=== PATIENT | female | born 1990 | race Caucasian/White ===

== ENCOUNTER 2016-12-25 20:58 | Emergency (ER) | payer OTHER ==
--- NOTE | 2016-12-25 21:11 | UC ---
UC General HPI - HPI Summary HPI Summary: The patient comes in today for: 1. Chills, myalgia, vomiting, dizzy (imblance to vertigo), fever: Onset: Yesterday evening. Palliative/provocative: Movement makes her dizziness worse. Quality: Vertigo and aches. Region: Back of the lefts and middle of back. Severity: 3/10 Associated symptoms: Fever: Taken 99.5 at one hour ago. Myalgia: Middle of the back, and posterior legs, Vomitin x /day. Mucous in vomitus, but no blood. Diarrhea: 10-12 stools/day brown water. Urination: "twice today." Home treatment: None. Flu vaccine: None. * - History of Current Complaint Stated Complaint: V&D,CRAMPS,FEVER,WEAK,DIZZY Time Seen by Provider: 12/25/16 21:04 Hx Obtained From: Patient, Family/Evaluation Assistant - Allergy/Home Medications Allergies/Adverse Reactions: Allergies Allergy/AdvReac Type Severity Reaction Status Date / Time Shellfish Allergy Allergy Mild Swelling Verified 12/25/16 21:15 Of Face,Lips,& Throat Gluten Meal Allergy Nausea And Verified 12/25/16 21:15 Vomiting Dextromethorphan AdvReac Nausea And Verified 12/25/16 21:15 [From Mucinex DM] Vomiting Guaifenesin [From Mucinex DM] AdvReac Nausea And Verified 12/25/16 21:15 Vomiting Yellow Dye [From Mucinex DM] AdvReac Nausea And Verified 12/25/16 21:15 Vomiting PMH/Surg Hx/FS Hx/Imm Hx Previously Healthy: No Endocrine History Of: Reports: Thyroid Disease - enlarged with nodule, sees Dr. Deluca Denies: Diabetes, Hyperthyroidism, Hypothyroidism, Dyslipidemia Cardiovascular History Of: Denies: Cardiac Disorders, Hypertension, Pacemaker/ICD, Myocardial Infarction , Congestive Heart Failure, Atrial Fibrillation, Deep Vein Thrombosis, Bleeding Disorders Respiratory History Of: Denies: COPD, Asthma, Bronchitis, Pneumonia, Pulmonary Embolism GI/ History Of: Denies: Gastroesophageal Reflux, Ulcer, Gastrointestinal Bleed, Gall Bladder Disease, Kidney Stones, Diverticulitis, Renal Disease, Urosepsis Neurological History Of: Denies: TIA, CVA, Dementia, Seizures, Migraine Psychological History Of: Denies: Anxiety, Depression, Bipolar Disorder, Schizophrenia, Post Traumatic Stress Disorder Cancer History Of: Denies: Lung Cancer, Colorectal Cancer, Breast Cancer, Prostate Cancer, Cervical Cancer Other History Of: Negative For: HIV, Hepatitis B, Hepatitis C, Anticoagulant Therapy - Surgical History Surgical History: Yes Surgery Procedure, Year, and Place: D&C March 2013. WISDOM TEETH 12/2013 - Family History Known Family History: Negative: Cardiac Disease, Hypertension - Social History Occupation: Employed Full-time Alcohol Use: Rare Substance Use Type: None Smoking Status (MU): Never Smoked Tobacco Have You Smoked in the Last Year: No - Immunization History Most Recent Influenza Vaccination: 07/25/15 Most Recent Tetanus Shot: 08/08/15 Most Recent Pneumonia Vaccination: never Review of Systems Constitutional: Negative Skin: Negative Eyes: Negative ENT: Negative Respiratory: Negative Cardiovascular: Negative Gastrointestinal: Negative, Vomiting, Diarrhea Genitourinary: Negative Neurological: Headache All Other Systems Reviewed And Are Negative: Yes Physical Exam Triage Information Reviewed: Yes Appearance: Well-Appearing, No Pain Distress, Well-Nourished Vital Signs Reviewed: Yes Eyes: Positive: Conjunctiva Clear. Negative: Discharge ENT: Positive: Hearing grossly normal. Negative: Pharyngeal erythema, Nasal congestion, Nasal drainage, TM bulging, TM dull, TM red, Tonsillar swelling, Tonsillar exudate Dental: Negative: Gross Decay/Caries @, Dental Fracture @ Neck: Positive: Supple, Nontender, No Lymphadenopathy. Negative: Nuchal Rigidity Respiratory: Positive: Chest non-tender, Lungs clear, No respiratory distress, No accessory muscle use. Negative: Crackles, Wheezing Cardiovascular: Positive: RRR, No Murmur Abdomen Description: Positive: Nontender, No Organomegaly, Soft. Negative: Distended, Guarding Musculoskeletal: Positive: Strength Intact, ROM Intact, No Edema Neurological: Positive: Alert, Muscle Tone Normal Psychological: Positive: Age Appropriate Behavior, Consolable Skin: Negative: rashes, breakdown Course/Dx - Course Course Of Treatment: Patient declined a rapid flu test. She got 1 liter of D5NS and 4 mg of Zofran. She is feeling much better in nausea (gone) with improvement in the body aches. She declines any vertigo at this time. - Differential Dx - Multi-Symptom Provider Diagnoses: Viral syndrome. Vertigo secondary to above. Viral gastroenteritis. myalgia secondary to above. Dehydration. Discharge - Discharge Plan Condition: Stable Disposition: HOME Prescriptions: Ondansetron INJ* [Zofran 2 MG/ML Inj*] 4 mg IV ONCE #4 mg Patient Education Materials: Dehydration (ED), Viral Syndrome (ED), Gastroenteritis (ED), Vertigo (ED) Forms: *Work Release Referrals: Christen Palomino, ANGELA [Primary Care Provider] - 1 Week (Please see your primary care provider early next week to see how well you are doing. If you get worse between now and then, please be seen sooner by your primary care provider, us, or the ER.)
[2016-12-25] MEDS ORDERED: Ondansetron INJ* 2 MG/ML VIAL IV ONE (21:13)
[2016-12-25] MEDS ORDERED: D5NS 0.9% 1000 ML BAG* 1,000 ML IV SCH (22:00)
[2016-12-25] MEDS ORDERED: Meclizine TAB* 12.5 MG PO ONE (22:30)
[2016-12-25] MEDS ORDERED: Ondansetron ODT TAB* 4 MG PO ONE (22:30)
[2016-12-25 22:48] VITALS: BP 114/69
== END 2016-12-25 22:55 | disposition home or self-care (01) ==
LOC: UCEAST 20:58
DX: B34.9 Viral infection, unspecified (principal); R42 Dizziness and giddiness; A08.4 Viral intestinal infection, unspecified; M79.1 Myalgia; E86.0 Dehydration; E04.9 Nontoxic goiter, unspecified
CPT/HCPCS: 96360; 96374; 99213; A9270-GY; G0463; J2405

== ENCOUNTER 2016-12-27 21:54 | Emergency (ER) | payer OTHER ==
--- NOTE | 2016-12-27 22:56 | UC ---
Abdominal Pain Female HPI - HPI Summary HPI Summary: PT WITH 3 DAYS OF ABDOMINAL PAIN AND WATERY DIARRHEA. WAS SEEN HERE 2 DAYS AGO AND TX WITH IVF, ZOFRAN AND MECLIZINE. FELT A BIT BETTER YESTERDAY BUT TODAY WORSE AGAIN. HAD LOW GRADE FEVER INITIALLY WHICH HAS NOW RESOLVED. ALSO HAS HAD SOME RIGHT FLANK PAIN THAT HAS BEEN PERSISTENT. NAUSEA IS INTERMITTENT BUT VOMITING HAS STOPPED. - History of Current Complaint Chief Complaint: UCAbdominalPain Stated Complaint: BACK AND ABDOMINAL COMPLAINT Time Seen by Provider: 12/27/16 22:34 Hx Obtained From: Patient, Family/Loading Machine Tool Setter - Hx Last Menstrual Period: Onset/Duration: Gradual Onset, Lasting Days, Still Present Timing: Constant Severity Initially: Moderate Severity Currently: Moderate Pain Intensity: 6 Pain Scale Used: 0-10 Numeric Location: Diffuse Radiates: No Character: Cramping, Sharp Aggravating Factor(s): Nothing Alleviating Factor(s): Nothing Associated Signs and Symptoms: Positive: Fever, Back Pain, Decreased Appetite, Nausea, Diarrhea Allergies/Adverse Reactions: Allergies Allergy/AdvReac Type Severity Reaction Status Date / Time Shellfish Allergy Allergy Mild Swelling Verified 12/27/16 22:04 Of Face,Lips,& Throat Gluten Meal Allergy Nausea And Verified 12/27/16 22:04 Vomiting Dextromethorphan AdvReac Nausea And Verified 12/27/16 22:04 [From Mucinex DM] Vomiting Guaifenesin [From Mucinex DM] AdvReac Nausea And Verified 12/27/16 22:04 Vomiting Yellow Dye [From Mucinex DM] AdvReac Nausea And Verified 12/27/16 22:04 Vomiting PMH/Surg Hx/FS Hx/Imm Hx - Additional Past Medical History Additional PMH: CELIAC Endocrine History Of: Reports: Thyroid Disease - enlarged with nodule, sees Dr. Deluca Denies: Diabetes, Hyperthyroidism, Hypothyroidism, Dyslipidemia Cardiovascular History Of: Denies: Cardiac Disorders, Hypertension, Pacemaker/ICD, Myocardial Infarction , Congestive Heart Failure, Atrial Fibrillation, Deep Vein Thrombosis, Bleeding Disorders Respiratory History Of: Denies: COPD, Asthma, Bronchitis, Pneumonia, Pulmonary Embolism GI/ History Of: Denies: Gastroesophageal Reflux, Ulcer, Gastrointestinal Bleed, Gall Bladder Disease, Kidney Stones, Diverticulitis, Renal Disease, Urosepsis Neurological History Of: Denies: TIA, CVA, Dementia, Seizures, Migraine Psychological History Of: Denies: Anxiety, Depression, Bipolar Disorder, Schizophrenia, Post Traumatic Stress Disorder Cancer History Of: Denies: Lung Cancer, Colorectal Cancer, Breast Cancer, Prostate Cancer, Cervical Cancer Other History Of: Negative For: HIV, Hepatitis B, Hepatitis C, Anticoagulant Therapy - Surgical History Surgical History: Yes Surgery Procedure, Year, and Place: D&C March 2013. WISDOM TEETH 12/2013 - Family History Known Family History: Negative: Cardiac Disease, Hypertension - Social History Alcohol Use: Occasionally Substance Use Type: None Smoking Status (MU): Never Smoked Tobacco Have You Smoked in the Last Year: No - Immunization History Most Recent Influenza Vaccination: 07/25/15 Most Recent Tetanus Shot: 08/08/15 Most Recent Pneumonia Vaccination: never Review of Systems Constitutional: Fever Respiratory: Negative Cardiovascular: Negative Gastrointestinal: Abdominal Pain, Diarrhea, Other - NAUSEA Genitourinary: Negative All Other Systems Reviewed And Are Negative: Yes Physical Exam Triage Information Reviewed: Yes Appearance: No Pain Distress, Well-Nourished, Ill-Appearing - MILDLY Vital Signs: Initial Vital Signs Temp 97.5 F 12/27/16 21:58 Pulse 98 12/27/16 21:58 Resp 16 12/27/16 21:58 BP 109/77 12/27/16 21:58 Pulse Ox 98 12/27/16 21:58 Eyes: Positive: Conjunctiva Clear ENT: Positive: Hearing grossly normal Neck: Positive: Supple, Nontender, No Lymphadenopathy Respiratory Exam: Normal Cardiovascular Exam: Normal Abdomen Description: Positive: Soft, Other: - RUQ TTP. NO REBOUND OR RIGIDITY. Negative: CVA Tenderness (R), CVA Tenderness (L), Distended Bowel Sounds: Positive: Present Musculoskeletal: Positive: No Edema Neurological: Positive: Alert Psychological: Positive: Age Appropriate Behavior Skin: Negative: rashes Abd Pain Female Course/Dx - Course Course Of Treatment: PT UNABLE TO PROVIDE A URINE SAMPLE FOR TESTING. WILL SEND TO ER FOR FURTHER EVAL OF PERSISTENT ABDOMINAL PAIN AND DIARRHEA. HAS DISTINCT RUQ TENDERNESS. - Differential Dx/Diagnosis Provider Diagnoses: RUQ PAIN/DIARRHEA - Physician Notification/Consults Discussed Patient Care With: DR. MATTHEWS Time Discussed With Above Provider: 22:55 - TO [facility] [place] ER BY PRIVATE CAR Discharge - Discharge Plan Condition: Stable Disposition: AGAINST MEDICAL ADVICE Referrals: Christen Palomino NP [Primary Care Provider] -
[2016-12-27 23:02] VITALS: BP 121/80
== END 2016-12-27 22:50 | disposition left against medical advice (07) ==
LOC: UCEAST 21:54
DX: R10.11 Right upper quadrant pain (principal); R19.7 Diarrhea, unspecified; E07.9 Disorder of thyroid, unspecified; Z91.013 Allergy to seafood
CPT/HCPCS: 99212; G0463

== ENCOUNTER 2016-12-27 23:07 | Emergency (ER) | payer OTHER ==
[2016-12-27] MEDS ORDERED: NS 0.9% 1000 ML* 1,000 ML IV ONE (23:50)
[2016-12-27] MEDS ORDERED: Ketorolac INJ* 30 MG/ML 1 ML VIAL IV PUSH ONE (23:51)
--- NOTE | 2016-12-28 00:18 | ED ---
Pavan Sifuentes Aidan, scribed for Yakov Oliveira MD on 12/28/16 at 0003 . Abdominal Pain/Female - HPI Summary HPI Summary: 26 y/o female presents to the ED via transfer from the Urgent Care with a complaint of acute, constant, moderate (6/10) right-sided abdominal pain and right flank pain. 2 days ago, she was seen at the Urgent Care for what she thought was dehydration from a stomach virus, fever, nausea, and vomiting. She has not vomited since then. Today, she went again to the UC for her abdominal pain, difficulty eating, and for frequent episodes of explosive diarrhea. She claims to have already produced 15-20 watery stools today alone. When the physician in the UC pressed down on her middle back, she suddenly had a sharp, severe middle back pain that has persisted since. Other associated symptoms include an inability to urinate. All she has had to eat today was some rice, chereos, and toast. Pt denies any dysuria or frequency. - History of Current Complaint Chief Complaint: EDGeneral Stated Complaint: UNABLE TO URINATE/ABD PAIN/LOWER BACK PAIN Time Seen by Provider: 12/27/16 23:39 Hx Obtained From: Patient Hx Last Menstrual Period: ?: No Onset/Duration: Sudden Onset, Lasting Days, Still Present Timing: Constant Severity Initially: Moderate Severity Currently: Moderate Pain Intensity: 6 Pain Scale Used: 0-10 Numeric Location: Discrete At: RUQ, Discrete At: RLQ - right-sided Radiates: No Character: Sharp Aggravating Factor(s): Other: - pressing on the patient's middle back caused a sharp, severe middle back pain Alleviating Factor(s): Other: - unknown Associated Signs and Symptoms: Positive: Fever - 2 days ago, Back Pain - middle back, Urinary Symptoms - inability to urinate, Nausea, Vomiting - 2 days ago, Diarrhea - 15-20 episodes today alone, began 3 days ago, Other: - inability to eat, right flank pain Allergies/Adverse Reactions: Allergies Allergy/AdvReac Type Severity Reaction Status Date / Time Shellfish Allergy Allergy Mild Swelling Verified 12/27/16 22:04 Of Face,Lips,& Throat Gluten Meal Allergy Nausea And Verified 12/27/16 22:04 Vomiting Dextromethorphan AdvReac Nausea And Verified 12/27/16 22:04 [From Mucinex DM] Vomiting Guaifenesin [From Mucinex DM] AdvReac Nausea And Verified 12/27/16 22:04 Vomiting Yellow Dye [From Mucinex DM] AdvReac Nausea And Verified 12/27/16 22:04 Vomiting PMH/Surg Hx/FS Hx/Imm Hx Endocrine/Hematology History: Reports: Hx Thyroid Disease - enlarged with nodule , sees Dr. Deluca Denies: Hx Anticoagulant Therapy, Hx Diabetes, Hx Anemia Cardiovascular History: Denies: Hx Congestive Heart Failure, Hx Deep Vein Thrombosis, Hx Hypertension , Hx Myocardial Infarction, Hx Pacemaker/ICD Respiratory History: Denies: Hx Asthma, Hx Chronic Obstructive Pulmonary Disease (COPD), Hx Lung Cancer, Hx Pneumonia, Hx Pulmonary Embolism GI History: Denies: Hx Gall Bladder Disease, Hx Gastrointestinal Bleed, Hx Jaundice, Hx Ulcer, Hx Urosepsis History: Denies: Hx Kidney Infection, Hx Kidney Stones, Hx Renal Disease, Other Problems/Disorders Sensory History: Denies: Hx Hearing Aid Neurological History: Denies: Hx Dementia, Hx Migraine, Hx Seizures, Hx Transient Ischemic Attacks (TIA) Psychiatric History: Denies: Hx Anxiety, Hx Depression, Hx Panic Disorder, Hx Schizophrenia, Hx Bipolar Disorder, Other Psychiatric Issues/Disorders - Surgical History Surgery Procedure, Year, and Place: D&C March 2013. WISDOM TEETH 12/2013 Infectious Disease History: No Infectious Disease History: Reports: Hx Shingles Denies: Hx Clostridium Difficile, Hx Hepatitis, Hx Human Immunodeficiency Virus (HIV), Hx of Known/Suspected MRSA, Hx Tuberculosis, Hx Known/Suspected VRE , Hx Known/Suspected VRSA, History Other Infectious Disease, Traveled Outside the [place] in Last 30 Days - Family History Known Family History: Negative: Cardiac Disease, Hypertension - Social History Occupation: Employed Full-time Lives: With Family Alcohol Use: Occasionally Substance Use Type: Reports: None Hx Tobacco Use: No Smoking Status (MU): Never Smoked Tobacco Have You Smoked in the Last Year: No Review of Systems Positive: Fever - 2 days ago. Negative: Chills, Fatigue, Skin Diaphoresis Eyes: Negative ENT: Negative Cardiovascular: Negative Respiratory: Negative Positive: Abdominal Pain, Vomiting - 2 days ago, Diarrhea, Nausea Positive: flank pain, other - inability to urinate. Negative: burning, dysuria , discharge, frequency, hematuria, incontinence, pain, urgency Positive: Arthralgia - middle back pain. Negative: Myalgia, Decreased ROM, Edema Skin: Negative Neurological: Negative Psychological: Normal All Other Systems Reviewed And Are Negative: Yes Physical Exam Triage Information Reviewed: Yes Vital Signs On Initial Exam: Initial Vitals Temp Pulse Resp BP Pulse Ox 97.7 F 95 16 104/74 100 12/27/16 23:25 12/27/16 23:25 12/27/16 23:25 12/27/16 23:25 12/27/16 23:25 Vital Signs Reviewed: Yes Appearance: Positive: Well-Appearing, Pain Distress - mild discomfort Skin: Positive: Warm Head/Face: Positive: Normal Head/Face Inspection Eyes: Positive: RAIN ENT: Positive: Hearing grossly normal Neck: Positive: Supple Respiratory/Lung Sounds: Positive: Breath Sounds Present, Decreased Breath Sounds Cardiovascular: Positive: RRR Abdomen Description: Positive: Soft, Other: - mild upper abd tenderness Bowel Sounds: Positive: Present Musculoskeletal: Positive: Strength/ROM Intact Neurological: Positive: Sensory/Motor Intact, Alert, Oriented to Person Place, Time Diagnostics - Vital Signs Vital Signs Temp Pulse Resp BP Pulse Ox 12/27/16 23:25 97.7 F 95 16 104/74 100 - Laboratory Result Diagrams: 12/28/16 00:42 12/28/16 00:42 Lab Statement: Any lab studies that have been ordered have been reviewed, and results considered in the medical decision making process. - Ultrasound No standard instances Ultrasound Interpretation: No Acute Changes - US GALLBLADDER IMPRESSION: No evidence of pathology, but the CBD was not visualized. Ultrasound Interpretation Completed By: Radiologist - cash applications manager Re-Evaluation - Re-Evaluation First Eval Change: Improved Abdominal Pain Fem Course/Dx - Course Course Of Treatment: 26 y/o female presents to the ED via transfer from the Urgent Care with a complaint of acute, constant, moderate (6/10) right-sided abdominal pain, right flank pain, and diarrhea. While at the today, during examination when her middle back was palpated, she developed a sharp middle back pain. Additionally, she has not been able to urinate. Currently, she is felling moderately better and is well enough for discharge. She will be diagnosed with abdominal pain. - Diagnoses Provider Diagnoses: Abdominal pain Discharge - Discharge Plan Condition: Stable Disposition: HOME Discharge Disposition Comment: Please follow up with your primary care provider within 2 days. Patient Education Materials: Abdominal Pain (ED) Referrals: Christen Palomino NP [Primary Care Provider] - The documentation as recorded by the Pavan bourne Aidan accurately reflects the service I personally performed and the decisions made by me, Yakov Oliveira MD.
[2016-12-28 00:54] LABS: Hematocrit 40 % (35-47); Hemoglobin 13.4 g/dl (12.0-16.0); Mean Corpuscular HGB Conc 34 g/dl (31-36); Mean Corpuscular Hemoglobin 28 pg (27-31); Mean Corpuscular Volume 82 fL (80-97); Mean Platelet Volume 9 um3 (7.4-10.4); Red Blood Count 4.87 10^6/ul (4.0-5.4); Red Cell Distribution Width 15 % (10.5-15); White Blood Count 6.9 10^3/ul (3.5-10.8)
[2016-12-28 01:11] LABS: ALT 18 U/L (7-52); AST 26 U/L (13-39); Alkaline Phosphatase 43 U/L (34-104); Anion Gap 11 mmol/L (2-11); BUN/Creatinine Ratio 11.7 (8-20); Blood Urea Nitrogen 9 mg/dL (6-24); C Reactive Protein 3.46 mg/L (< 5.00); CO2 Carbon Dioxide 18 mmol/L (22-32); Calcium 8.7 mg/dL (8.6-10.3); Chloride 106 mmol/L (101-111); EGFR African American 114.8 (>60); EGFR Non-African American 89.3 (>60); Globulin 3.3 g/dL (2-4); Glucose 96 mg/dL (70-100); Lipase 30 U/L (11.0-82.0); Magnesium 1.7 mg/dL (1.9-2.7); Potassium 3.1 mmol/L (3.5-5.0); Sodium 135 mmol/L (133-145); Total Protein 7.3 g/dL (6.4-8.9)
[2016-12-28] MEDS ORDERED: Potassium Chloride LIQUID* 20 MEQ PACKET PO ONE (01:31)
[2016-12-28] MEDS ORDERED: Al Hydrox/Mg Hydrox/Simet LIQ* 30 ML UDC PO ONE (01:55)
[2016-12-28] MEDS ORDERED: Lidocaine 2% VISCOUS* 15 ML UDC PO ONE (01:55)
[2016-12-28] MEDS ORDERED: NS 0.9% 1000 ML* 1,000 ML IV ONE (02:14)
[2016-12-28 03:08] LABS: Urine Bilirubin Negative (Negative); Urine Glucose Negative (Negative); Urine Nitrite Negative (Negative)
[2016-12-28 04:03] VITALS: BP 109/66
--- NOTE | 2016-12-28 07:53 | RAD ---
HISTORY: Right upper quadrant pain COMPARISONS: July 21, 2010 TECHNIQUE: Multiple transverse and longitudinal ultrasound images were obtained of the right upper quadrant of the abdomen using grayscale and color Doppler imaging. FINDINGS: LIVER: The liver is normal in shape, size, contour, and echogenicity. There are no focal parenchymal masses. There is normal hepatopedal flow of the portal vein on Doppler imaging. BILIARY TREE: There is no appreciable intrahepatic or extrahepatic biliary dilatation. The common duct is not well visualized. GALLBLADDER: The gallbladder is well-visualized. There is no cholelithiasis, gallbladder wall thickening, pericholecystic fluid, or sonographic Rojas sign. PANCREAS: The head of the pancreas is unremarkable. The tail of the pancreas is not well visualized secondary to overlying bowel gas. RIGHT KIDNEY: The right kidney is normal in shape, size, contour, and echogenicity. There is no hydronephrosis or nephrolithiasis. The right kidney measures 11.3 x 5 x 4.7 cm. AORTA AND IVC: The aorta and IVC are unremarkable. FLUID: There are no pleural effusions. There is no free fluid within the hepatorenal recess. OTHER FINDINGS: None. IMPRESSION: NO ACUTE SONOGRAPHIC PATHOLOGY OF THE VISUALIZED PORTION OF THE ABDOMEN
== END 2016-12-28 04:00 | disposition home or self-care (01) ==
LOC: ED 23:07
DX: R10.9 Unspecified abdominal pain (principal); R11.2 Nausea with vomiting, unspecified; R19.7 Diarrhea, unspecified; M54.9 Dorsalgia, unspecified
CPT/HCPCS: 36415; 76705; 80053; 81003; 83605; 83690; 83735; 84702; 85025; 86140; 96361; 96374; 99283; A9270-GY; J1885

== ENCOUNTER 2017-03-02 10:25 | Emergency (ER) | payer OTHER ==
[2017-03-02 10:35] VITALS: BP 101/66
--- NOTE | 2017-03-02 10:52 | UC ---
Ear Complaint HPI - HPI Summary HPI Summary: sore throat cough and ear pain for 3-4 days no fevers - History of Current Complaint Chief Complaint: UCRespiratory Stated Complaint: SORE THROAT,COUGH,EAR PAIN Time Seen by Provider: 03/02/17 10:46 Hx Obtained From: Patient Hx Last Menstrual Period: 02/22/17 ?: No Onset/Duration: Gradual Onset, Lasting Days - 3-4, Still Present Severity Initially: Mild Severity Currently: Moderate Pain Intensity: 5 Pain Scale Used: 0-10 Numeric Alleviating Factors: OTC Meds Associated Signs/Symptoms: Positive: URI Symptoms - Allergies/Home Medications Allergies/Adverse Reactions: Allergies Allergy/AdvReac Type Severity Reaction Status Date / Time Oat Allergy Severe Nausea And Verified 03/02/17 10:35 Vomiting Shellfish Allergy Allergy Mild Swelling Verified 12/27/16 22:04 Of Face,Lips,& Throat Gluten Meal Allergy Nausea And Verified 12/27/16 22:04 Vomiting Dextromethorphan AdvReac Nausea And Verified 12/27/16 22:04 [From Mucinex DM] Vomiting Guaifenesin [From Mucinex DM] AdvReac Nausea And Verified 12/27/16 22:04 Vomiting Yellow Dye [From Mucinex DM] AdvReac Nausea And Verified 12/27/16 22:04 Vomiting Home Medications: Home Medications Cholecalciferol [Vitamin D] 03/02/17 [History] Multiple Vitamin [Multi Vitamin] 03/02/17 [History] PMH/Surg Hx/FS Hx/Imm Hx Previously Healthy: Yes Other History Of: Negative For: HIV, Hepatitis B, Hepatitis C, Anticoagulant Therapy - Surgical History Surgical History: Yes Surgery Procedure, Year, and Place: D&C March 2013. WISDOM TEETH 12/2013 - Family History Known Family History: Positive: None Negative: Cardiac Disease, Hypertension Family History: no cardiovascular issues reported in family lineage - Social History Occupation: Unemployed Lives: With Family Alcohol Use: None Substance Use Type: None Smoking Status (MU): Never Smoked Tobacco Have You Smoked in the Last Year: No - Immunization History Most Recent Influenza Vaccination: 07/25/15 Most Recent Tetanus Shot: 08/08/15 Most Recent Pneumonia Vaccination: never Review of Systems Constitutional: Negative Skin: Negative Eyes: Negative ENT: Sore Throat - pain actually bilateral eustation tube discomfort, Ear Ache Respiratory: Cough Cardiovascular: Negative Gastrointestinal: Negative Genitourinary: Negative Motor: Negative Neurovascular: Negative Musculoskeletal: Negative Neurological: Negative Psychological: Negative All Other Systems Reviewed And Are Negative: Yes Physical Exam Triage Information Reviewed: Yes Appearance: Well-Appearing, No Pain Distress, Well-Nourished Vital Signs: Initial Vital Signs Temp 98.2 F 03/02/17 10:30 Pulse 102 03/02/17 10:30 Resp 16 03/02/17 10:30 BP 101/66 03/02/17 10:30 Pulse Ox 97 03/02/17 10:30 Vital Signs Reviewed: Yes Eye Exam: Normal Eyes: Positive: Conjunctiva Clear ENT Exam: Normal ENT: Positive: Normal ENT inspection, Hearing grossly normal, TMs normal. Negative: Nasal congestion, Nasal drainage, Tonsillar swelling, Tonsillar exudate, Trismus, Muffled/hoarse voice Dental Exam: Normal Neck exam: Normal Neck: Positive: Supple, Nontender, No Lymphadenopathy Respiratory Exam: Normal Respiratory: Positive: Chest non-tender, Lungs clear, Normal breath sounds, No respiratory distress, No accessory muscle use Cardiovascular Exam: Normal Cardiovascular: Positive: RRR, No Murmur, Pulses Normal, Brisk Capillary Refill Musculoskeletal Exam: Normal Musculoskeletal: Positive: Strength Intact, ROM Intact, No Edema Neurological Exam: Normal Neurological: Positive: Alert, Muscle Tone Normal Psychological Exam: Normal Skin Exam: Normal Ear Complaint Course/Dx - Course Course Of Treatment: cintinue decongestant add flonase increase fluids follow with pcp - Differential Dx/Diagnosis Differential Diagnosis/HQI/PQRI: Otitis Externa, Otitis Media, URI Provider Diagnoses: B/L eustation tube dysfunction Discharge - Discharge Plan Condition: Stable Disposition: HOME Prescriptions: Fluticasone NASAL SPRAY 50MCG* [Flonase NASAL SPRAY 50MCG*] 2 spray BOTH NARES DAILY #1 btl Patient Education Materials: Serous Otitis Media (ED), How to Use Nasal Flom ( ED) Referrals: Christen Palomino NP [Primary Care Provider] - If Needed
== END 2017-03-02 10:59 | disposition home or self-care (01) ==
LOC: UCEAST 10:25
DX: H69.83 Other specified disorders of Eustachian tube, bilateral (principal); J02.9 Acute pharyngitis, unspecified
CPT/HCPCS: 99212; G0463

== ENCOUNTER 2017-09-30 18:53 | Emergency (ER) | payer BC, OTHER ==
[2017-09-30 19:28] VITALS: BP 119/75
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
== END 2017-09-30 21:58 | disposition home or self-care (01) ==
LOC: UCCORT 18:53
DX: S16.1XXA Strain of muscle, fascia and tendon at neck level, initial encounter (principal); V43.92XA Unspecified car occupant injured in collision with other type car in traffic accident, initial encounter; Y93.9 Activity, unspecified; Y92.410 Unspecified street and highway as the place of occurrence of the external cause; E04.1 Nontoxic single thyroid nodule
CPT/HCPCS: 72125; 99201; G0463

== ENCOUNTER 2018-01-01 21:46 | Emergency (ER) | payer BC ==
[2018-01-01 22:03] VITALS: BP 130/71
[2018-01-01] MEDS ORDERED: Sulfamethox/Trimethoprim DS 800/160* TAB PO ONE ×2 (22:27)
[2018-01-01] MEDS ORDERED: Phenazopyridine TAB* 100 MG PO ONE ×2 (22:28)
--- NOTE | 2018-01-01 22:30 | UC ---
Pediatric GI/ HPI - HPI Summary HPI Summary: 27 yo female with dysuria /urgency/ frequency <6 hrs no f/c no vaginal d/c - History Of Current Complaint Chief Complaint: [facility] Stated Complaint: UTI Time Seen by Provider: 01/01/18 21:57 Hx Obtained From: Patient Onset/Duration: Gradual Onset Severity Initially: Moderate Severity Currently: Mild Pain Intensity: 8 - while voiding Pain Scale Used: 0-10 Numeric Character: Urine - dysuria Associated Signs And Symptoms: Positive: Negative - Allergies/Home Medications Allergies/Adverse Reactions: Allergies Allergy/AdvReac Type Severity Reaction Status Date / Time gluten Allergy Nausea And Verified 01/01/18 22:12 Vomiting guaifenesin [From Mucinex] Allergy Nausea And Verified 01/01/18 22:12 Vomiting oats Allergy Nausea And Verified 01/01/18 22:12 Vomiting shellfish derived Allergy Swelling Verified 01/01/18 22:12 Of Face,Lips,& Throat Home Medications: Home Medications 21/Iron Fu/Folic Acid [ Complete] 1 tab PO DAILY 01/01/18 [ History Confirmed 01/01/18] Past Medical History Previously Healthy: Yes Respiratory History: No: Asthma, Pneumonia Chronic Illness History: No: Seizures, Diabetes - Family History Family History: no cardiovascular issues reported in family lineage Family History of Asthma: No Family History Of Seizure: No Review Of Systems Constitutional: Negative Eyes: Negative ENT: Negative Cardiovascular: Negative Respiratory: Negative Gastrointestinal: Negative Genitourinary: Dysuria, Other - urgency/frequency, no vag d/c or itch Musculoskeletal: Negative Skin: Negative Neurological: Negative Psychological: Negative All Other Systems Reviewed And Are Negative: Yes Physical Exam Triage Information Reviewed: Yes Vital Signs: Initial Vital Signs Temp 98.1 F 01/01/18 21:58 Pulse 82 01/01/18 21:58 Resp 18 01/01/18 21:58 BP 130/71 01/01/18 21:58 Pulse Ox 100 01/01/18 21:58 Appearance: Well-Appearing, No Pain Distress, Well-Nourished Eyes: Positive: Conjunctiva Clear ENT: Positive: Hearing grossly normal, Nasal congestion, TMs normal, Uvula midline. Negative: Tonsillar swelling, Tonsillar exudate, Trismus, Muffled voice, Hoarse voice, Sinus tenderness Neck: Positive: Supple, Nontender Respiratory: Positive: Lungs clear, Normal breath sounds, No respiratory distress Cardiovascular: Positive: RRR, No Murmur Bowel Sounds: Present Musculoskeletal: Positive: Normal Neurological: Positive: Normal Psychological: Positive: Normal Diagnostics - Laboratory Diagnostic Studies Completed/Ordered: UA (+) nitrite,+RBCs Pediatric GI Course/Dx - Differential Dx/Diagnosis Provider Diagnoses: acute dysuria Discharge - Sign-Out/Discharge Documenting (check all that apply): Discharge - Discharge Plan Condition: Stable Disposition: HOME Prescriptions: Phenazopyridine TAB* [Pyridium TAB*] 100 mg PO TID #4 tab Sulfamethox/Trimethoprim DS* [Bactrim DS 800/160 TAB*] 1 tab PO BID #4 tab Patient Education Materials: Dysuria (ED) Referrals: Christiano Paez WIRE SPRING RELAY ADJUSTER [Primary Care Provider] - Additional Instructions: suspect a UTI a culture is pending recheck for new or worsening symptoms recheck in 2-3 days if not better - Billing Disposition and Condition Condition: STABLE Disposition: HOME
== END 2018-01-01 22:41 | disposition home or self-care (01) ==
LOC: UCEAST 21:46
DX: R30.0 Dysuria (principal); Z32.02 Encounter for pregnancy test, result negative
CPT/HCPCS: 81003; 84702; 87077; 87086; 87186; 99213; A9270-GY; G0463

== ENCOUNTER 2018-01-02 15:59 | Emergency (ER) | payer BC ==
[2018-01-02] MEDS ORDERED: NS 0.9% 1000 ML* 1,000 ML IV ONE (16:41)
--- NOTE | 2018-01-02 16:47 | UC ---
UC General HPI - HPI Summary HPI Summary: Patient urgent care today stating she was seen last night diagnosis of urinary tract infection started on antibiotics. States today she hasn't voided for 6 hours she has a headache and she feels very uncomfortable no fevers chills nausea vomiting. - History of Current Complaint Chief Complaint: [facility] Stated Complaint: HEADACHE, AND NAUSEA Time Seen by Provider: 01/02/18 16:42 Hx Obtained From: Patient Hx Last Menstrual Period: 12/15/17 Onset/Duration: Sudden Onset, Lasting Days - 1, Still Present Timing: Constant Onset Severity: Moderate Current Severity: Moderate Pain Intensity: 6 - Allergy/Home Medications Allergies/Adverse Reactions: Allergies Allergy/AdvReac Type Severity Reaction Status Date / Time gluten Allergy Nausea And Verified 01/02/18 16:21 Vomiting guaifenesin [From Mucinex] Allergy Nausea And Verified 01/02/18 16:21 Vomiting oats Allergy Nausea And Verified 01/02/18 16:21 Vomiting shellfish derived Allergy Swelling Verified 01/02/18 16:21 Of Face,Lips,& Throat PMH/Surg Hx/FS Hx/Imm Hx Previously Healthy: Yes Other History Of: Negative For: HIV, Hepatitis B, Hepatitis C, Anticoagulant Therapy - Surgical History Surgical History: Yes Surgery Procedure, Year, and Place: D&C March 2013. WISDOM TEETH 12/2013 - Family History Known Family History: Positive: None Negative: Cardiac Disease, Hypertension Family History: no cardiovascular issues reported in family lineage - Social History Occupation: Employed Full-time Lives: With Family Alcohol Use: None Substance Use Type: None Smoking Status (MU): Never Smoked Tobacco Have You Smoked in the Last Year: No - Immunization History Most Recent Influenza Vaccination: 07/25/15 Most Recent Tetanus Shot: 08/08/15 Most Recent Pneumonia Vaccination: never Review of Systems Constitutional: Negative Skin: Negative Eyes: Negative ENT: Negative Respiratory: Negative Cardiovascular: Negative Gastrointestinal: Abdominal Pain, Nausea Genitourinary: Other Motor: Negative Neurovascular: Negative Musculoskeletal: Negative Neurological: Headache Psychological: Negative Is Patient Immunocompromised?: No All Other Systems Reviewed And Are Negative: Yes Physical Exam Triage Information Reviewed: Yes Appearance: Well-Appearing, No Pain Distress, Well-Nourished Vital Signs: Initial Vital Signs Temp 97.4 F 01/02/18 16:17 Pulse 85 04/20/18 16:17 Resp 18 01/02/18 16:17 BP 120/67 01/02/18 16:17 Pulse Ox 100 01/02/18 16:17 Vital Signs Reviewed: Yes Eye Exam: Normal Eyes: Positive: Conjunctiva Clear ENT Exam: Normal ENT: Positive: Normal ENT inspection, Hearing grossly normal, Uvula midline. Negative: Nasal congestion, Nasal drainage, Muffled voice, Hoarse voice, Dental tenderness, Sinus tenderness Dental Exam: Normal Neck exam: Normal Neck: Positive: Supple, Nontender, No Lymphadenopathy Respiratory Exam: Normal Respiratory: Positive: Chest non-tender, Lungs clear, Normal breath sounds, No respiratory distress, No accessory muscle use Cardiovascular Exam: Normal Cardiovascular: Positive: RRR, No Murmur, Pulses Normal, Brisk Capillary Refill Abdominal Exam: Normal Abdomen Description: Positive: Nontender, No Organomegaly, Soft. Negative: CVA Tenderness (R), CVA Tenderness (L), McBurney's Point Tenderness Musculoskeletal Exam: Normal Musculoskeletal: Positive: Strength Intact, ROM Intact, No Edema Neurological Exam: Normal Neurological: Positive: Alert, Muscle Tone Normal Psychological Exam: Normal Skin: Positive: Other - Mucous membranes are dry pink Course/Dx - Course Course Of Treatment: Has voided 2 and feels much better plan will be to discharged home finished antibiotics for urinary tract infection follow with PCP return as needed - Differential Dx - Multi-Symptom Provider Diagnoses: Dehydration nausea Discharge - Sign-Out/Discharge Documenting (check all that apply): Discharge - Discharge Plan Condition: Good Disposition: HOME Patient Education Materials: Dehydration (ED), Urinary Tract Infection in Women (ED) Referrals: Christiano Paez NP [Primary Care Provider] - If Needed - Billing Disposition and Condition Condition: GOOD Disposition: HOME
[2018-01-02] MEDS ORDERED: Ketorolac INJ* 30 MG/ML 1 ML VIAL IV PUSH ONE (18:21)
[2018-01-02 19:34] VITALS: BP 128/60
--- NOTE | 2018-01-04 15:27 | UC ---
- Progress Note Progress Note: Pt urine culture with E. Coli. On Bactrim and is sensitive. No change Discharge - Sign-Out/Discharge Documenting (check all that apply): Post-Discharge Follow Up - Discharge Plan Condition: Good Disposition: HOME Patient Education Materials: Dehydration (ED), Urinary Tract Infection in Women (ED) Referrals: Christiano Paez, INSURANCE SALESPERSON [Primary Care Provider] - If Needed - Billing Disposition and Condition Condition: GOOD Disposition: HOME
== END 2018-01-02 19:20 | disposition home or self-care (01) ==
LOC: UCEAST 15:59
DX: E86.0 Dehydration (principal); R11.0 Nausea; R51 Headache
CPT/HCPCS: 96374; 99211; G0463; J1885

== ENCOUNTER 2018-05-02 14:41 | Emergency (ER) | payer BC ==
[2018-05-02 14:55] VITALS: BP 109/69
--- NOTE | 2018-05-02 15:05 | UC ---
Ear Complaint HPI - HPI Summary HPI Summary: started yesterday with fullness in ears, no other symps, is preg - History of Current Complaint Chief Complaint: UCEar Stated Complaint: EAR ACHE Time Seen by Provider: 05/02/18 14:56 Hx Obtained From: Patient Hx Last Menstrual Period: 12/15/17 ?: Yes Onset/Duration: Sudden Onset Severity Initially: Mild Severity Currently: None Pain Intensity: 0 - Allergies/Home Medications Allergies/Adverse Reactions: Allergies Allergy/AdvReac Type Severity Reaction Status Date / Time gluten Allergy Nausea And Verified 05/02/18 14:56 Vomiting guaifenesin [From Mucinex] Allergy Nausea And Verified 05/02/18 14:56 Vomiting oats Allergy Nausea And Verified 05/02/18 14:56 Vomiting shellfish derived Allergy Swelling Verified 05/02/18 14:56 Of Face,Lips,& Throat PMH/Surg Hx/FS Hx/Imm Hx Previously Healthy: Yes Other History Of: Negative For: HIV, Hepatitis B, Hepatitis C, Anticoagulant Therapy - Surgical History Surgical History: Yes Surgery Procedure, Year, and Place: D&C March 2013. WISDOM TEETH 12/2013 - Family History Known Family History: Positive: None Negative: Cardiac Disease, Hypertension Family History: no cardiovascular issues reported in family lineage - Social History Occupation: Employed Full-time Lives: With Family Alcohol Use: None Substance Use Type: None Smoking Status (MU): Never Smoked Tobacco Have You Smoked in the Last Year: No - Immunization History Most Recent Influenza Vaccination: 07/25/15 Most Recent Tetanus Shot: 08/08/15 Most Recent Pneumonia Vaccination: never Review of Systems Constitutional: Negative Skin: Negative Eyes: Negative ENT: Other - ear fullness bilaterally All Other Systems Reviewed And Are Negative: Yes Physical Exam Triage Information Reviewed: Yes Appearance: Well-Appearing, No Pain Distress, Well-Nourished Vital Signs: Initial Vital Signs Temp 98.3 F 05/02/18 14:49 Pulse 78 05/02/18 14:49 Resp 16 05/02/18 14:49 BP 109/69 05/02/18 14:49 Pulse Ox 100 05/02/18 14:49 Vital Signs Reviewed: Yes ENT: Positive: Pharynx normal, TM dull - on Left. Negative: Nasal congestion, Nasal drainage, TM red, Sinus tenderness Respiratory Exam: Normal Cardiovascular Exam: Normal Musculoskeletal Exam: Normal Neurological Exam: Normal Psychological Exam: Normal Skin Exam: Normal Ear Complaint Course/Dx - Differential Dx/Diagnosis Differential Diagnosis/HQI/PQRI: Cerumen Impaction, Foreign Body, Otitis Externa , Otitis Media, URI, Other Provider Diagnoses: otalgia Discharge - Sign-Out/Discharge Documenting (check all that apply): Patient Departure - Discharge Plan Condition: Good Disposition: HOME Patient Education Materials: Earache (ED) Referrals: Christiano Paez RECEPTIONIST TELEPHONE OPERATOR [Primary Care Provider] - 2 Days (if no better) Additional Instructions: drink plenty of fluids move jaw as discussed to move eustachian tubes - Billing Disposition and Condition Condition: GOOD Disposition: Home
== END 2018-05-02 15:10 | disposition home or self-care (01) ==
LOC: UCEAST 14:41
DX: O26.90 Pregnancy related conditions, unspecified, unspecified trimester (principal); Z3A.00 Weeks of gestation of pregnancy not specified; H92.03 Otalgia, bilateral
CPT/HCPCS: 99211; G0463

== ENCOUNTER 2018-10-14 08:22 | Inpatient (IN) | payer BC ==
[2018-10-14] MEDS ORDERED: Lactated Ringers 1000 ML Bag* 1,000 ML IV ONE ×2 (08:46→11:31)
[2018-10-14] MEDS ORDERED: Buffered Lidocaine 1% SYRIN* 1 ML/SYRINGE INTRADERM ONE (08:46)
[2018-10-14] MEDS ORDERED: Lactated Ringers 1000 ML Bag* 1,000 ML IV SCH ×3 (09:00→21:00)
[2018-10-14] MEDS ORDERED: Oxytocin in LR* 20 UNITS/1,000 ML BAG IVPB SCH ×2 (09:00→21:00)
[2018-10-14] MEDS ORDERED: Oxytocin in LR* 20 UNITS/1,000 ML BAG IVPB ONE (09:19)
[2018-10-14 09:30] LABS: ABS Basophils 0 10^3/ul (0-0.2); ABS Eosinophils 0 10^3/ul (0-0.6); ABS Lymphocytes 1.3 10^3/ul (1.0-4.8); ABS Monocytes 0.8 10^3/ul (0-0.8); ABS Neutrophils 7.5 10^3/ul (1.5-7.7); ABS Nucleated RBC 0 10^3/ul; Eosinophil % 0.5 %; Hematocrit 29 % (35-47); Hemoglobin 9.7 g/dl (12.0-16.0); Lymphocyte % 13.7 %; Mean Corpuscular HGB Conc 33 g/dl (31-36); Mean Corpuscular Hemoglobin 26 pg (27-31); Mean Corpuscular Volume 78 fL (80-97); Mean Platelet Volume 9.2 fL (7.4-10.4); Nucleated Red Blood Cells % 0; Platelet Count 268 10^3/ul (150-450); Red Blood Count 3.73 10^6/ul (4.00-5.40); Red Cell Distribution Width 16 % (10.5-15); White Blood Count 9.7 10^3/ul (3.5-10.8)
[2018-10-14] MEDS ORDERED: OBEPIDURAL* 250 ML EPIDURAL ONE (11:01)
--- NOTE | 2018-10-14 11:03 | HP ---
General Information - Reason for Visit 39 WEEKS FOR INDUCTION - General Information Maternal Age: 28 Grav: 3 Para: 1 SAB: 1 IEA: 0 Estimated Due Date: 10/20/18 Determined By: LMP Maternal Blood Type and Rh: O Positive - Results this Serology/RPR Result: Non-Reactive Rubella Result: Immune HBsAg Result: Negative HIV Result: Negative GBS Culture Result: Negative Past Medical History Delivery History: Hx Uncomplicated Vaginal Delivery Pertinent Past Medical History: See Records Pertinent Past Surgical History: See Records Pertinent Family History: See Records - Antepartal Records Antepartal Records: Reviewed, Uncomplicated Review of Systems Constitutional: Comfortable CV Complaint: No Respiratory: Shortness of Breath: No Gastrointestinal: No Nausea/Vomiting Genitourinary: No Bleeding, No Leaking Fluid Musculoskeletal: No Complaint Neurological: No Headache Movement: Normal Exam Allergies/Adverse Reactions: Allergies gluten Allergy (Verified 05/02/18 14:56) Nausea And Vomiting guaifenesin [From Mucinex] Allergy (Verified 05/02/18 14:56) Nausea And Vomiting oats Allergy (Verified 05/02/18 14:56) Nausea And Vomiting shellfish derived Allergy (Verified 05/02/18 14:56) Swelling Of Face,Lips,& Throat Vital Signs 10/14/18 08:30 Temperature 98.2 F Pulse Rate 115 Respiratory 20 Rate Blood Pressure 127/84 (mmHg) O2 Sat by Pulse 100 Oximetry Lab Values - Entire Visit: Laboratory Tests 10/14/18 10/14/18 09:03 09:03 WBC 9.7 RBC 3.73 L Hgb 9.7 L Hct 29 L MCV 78 L MCH 26 L MCHC 33 RDW 16 H Plt Count 268 MPV 9.2 Neut % (Auto) 77.2 Lymph % (Auto) 13.7 [place] % (Auto) 8.2 Eos % (Auto) 0.5 Baso % (Auto) 0.4 Absolute Neuts (auto) 7.5 Absolute Lymphs (auto) 1.3 Absolute Monos (auto) 0.8 Absolute Eos (auto) 0 Absolute Basos (auto) 0 Absolute Nucleated RBC 0 Nucleated RBC % 0 Blood Type O Positive Antibody Screen Negative - Measurements Height: 5 ft 9 in Weight: 234 lb Weight in lbs: [phone] Body Mass Index (BMI): 34.5 Pre- Weight: 194 lb Weight Gained This : 40 lbs and 0 ozs - Exam Breast: Breast Exam Deferred CVA: No CVA Tenderness Extremities: Edema - +1 Heart: Normal Rhythm/Heart Sounds HEENT: No Significant Findings Lungs: Clear Bilaterally Reflexes: DTR 2+ Thyroid: No Thyromegaly - Abdominal Exam Abdomen Exam: Non-Tender - Ultrasound/Biophysical Profile Ultrasound Status: Not Done Targeted Exam Findings Cervical Exam: 3cm Effacement: 80% Station: -1 Presenting Part: Vertex Membrane Status: AROM EFM Findings - External Monitor Findings Baseline Heart Rate: 130 External Monitor Findings: Variability Moderate Contractions: Regular, 45-90 Seconds Assessment/Plan - Assessment INDUCTION OF LABOR AT 39 + WEEKS - Plan Plan: Admit - Anticipate Vaginal Delivery
[2018-10-14] MEDS ORDERED: Bupivacaine 0.25% SDV PF* 10 ML VIAL INJ ONE (11:10)
[2018-10-14] MEDS ORDERED: EPHEDrine (Pressors)* 50 MG/ML VIAL IV PUSH PRN (11:31)
[2018-10-14] MEDS ORDERED: Famotidine TAB* 20 MG PO PRN (11:31)
[2018-10-14] MEDS ORDERED: Sodium Citrate/Citric Acid* 15 ML UDC PO PRN (11:31)
[2018-10-14] MEDS ORDERED: Phenylephrine IV* 40 MCG/ML 10 ML SYRINGE IV PUSH PRN (11:31)
[2018-10-14] MEDS ORDERED: OBEPIDURAL* 250 ML EPIDURAL SCH (12:00)
[2018-10-14] MEDS ORDERED: Dibucaine 1% 28.35 GM TUBE PR PRN (20:05)
[2018-10-14] MEDS ORDERED: Witch Hazel PAD* JAR TOPICAL PRN (20:05)
[2018-10-14] MEDS ORDERED: Acetaminophen TAB* 325 MG PO PRN (20:05)
[2018-10-14] MEDS ORDERED: Glycerin ADULT SUPP PR PRN (20:05)
[2018-10-14] MEDS ORDERED: Simethicone TAB* 80 MG TAB.CHEW PO SCH (21:00)
--- NOTE | 2018-10-14 21:44 | PROCNOTE ---
[facility] OB: Delivery Note - Delivery A Date of : 10/14/18 Time of : 19:37 [place] Sex: Female Weight at : 4017 lb Score 1 Minute: 8 Score 5 Minutes: 9 Gestational Age in Weeks and Days at Delivery: 39 Weeks and 1 Days Delivery Method: Spontaneous Vaginal Labor: Induced Did Patient attempt ?: N/A, No Previous Amniotic Fluid: Clear Estimated Blood Loss: 150 Anesthesia/Analgesia: CEI for Labor Delivered By: Yakov Calderon Nursery Level of Nursery: Regular/Bedside - Perineum Perineal Injury: 2nd Degree Perineal Repair: By Delivering Practioner - Repaired with 3-0 rapide and 4-0 vicryl under local infiltration, 1% lido and CEI, pt tolerated well. - Events Delivery Events of Note: Pitocin During Labor - Additional Delivery Notes Additional Delivery Notes: Pt admitted at 39 weeks for an IOL. Pt progressed to active labor after AROM, clear fluid. Received CEI per pt request, with excellent relief. Length of labor 9 hours 14 minutes, pt pushed for 17 minutes. Strong maternal pushing effort led to of liveborn female. OA to VINCENT, shoulders followed easily, nuchal cord x1 easily reduced following delivery of body. [place] vigorous with spontaneous cry, heartbeat >110 BPM. Delivered to maternal abdomen. Cord clamped x2 and cut. Spontaneous delivery of intact placenta, membranes complete. Fundus firm to massage with IV pitocin infusing. Minimal bleeding noted, EBL 150 mL. Careful inspection of the perineum revealed second degree midline laceration repaired in the usual fashion by Sue Chaudhary MD, anatomy restored. At time of note, mother and in stable condition, planning to bottle feed.
[2018-10-15] MEDS: Ibuprofen TAB* 600 MG PO PRN ×3 (04:54→23:22)
[2018-10-15 08:32] LABS: ABS Basophils 0 10^3/ul (0-0.2); ABS Eosinophils 0 10^3/ul (0-0.6); ABS Lymphocytes 1.4 10^3/ul (1.0-4.8); ABS Monocytes 0.8 10^3/ul (0-0.8); ABS Neutrophils 8.2 10^3/ul (1.5-7.7); ABS Nucleated RBC 0 10^3/ul; Eosinophil % 0.4 %; Hematocrit 27 % (35-47); Hemoglobin 8.9 g/dl (12.0-16.0); Lymphocyte % 13.7 %; Mean Corpuscular HGB Conc 33 g/dl (31-36); Mean Corpuscular Hemoglobin 26 pg (27-31); Mean Corpuscular Volume 78 fL (80-97); Mean Platelet Volume 8.7 fL (7.4-10.4); Nucleated Red Blood Cells % 0.1; Platelet Count 200 10^3/ul (150-450); Red Blood Count 3.46 10^6/ul (4.00-5.40); Red Cell Distribution Width 16 % (10.5-15); White Blood Count 10.6 10^3/ul (3.5-10.8)
[2018-10-15] MEDS: Ferrous Gluconate TAB* 324 MG TAB PO SCH ×2 (08:48→22:03)
[2018-10-15] MEDS: Docusate CAP* 100 MG PO SCH (08:48)
[2018-10-16] MEDS: Ferrous Gluconate TAB* 324 MG TAB PO SCH (07:57)
[2018-10-16] MEDS: Docusate CAP* 100 MG PO SCH ×2 (07:57→07:58)
[2018-10-16 07:59] VITALS: BP 116/74
[2018-10-16] MEDS: Ibuprofen TAB* 600 MG PO PRN (08:04)
== END 2018-10-16 12:45 | disposition home or self-care (01) | DRG 560 ==
LOC: MCHOBOUT 08:22 → MCHOB 08:56
PROVIDERS: ADMIT Obstetrics & Gynecology; ATTEND Obstetrics & Gynecology
PROC: 4A1HXCZ Monitoring of Products of Conception, Cardiac Rate, External Approach (ICD-10-PCS; principal; 2018-10-14)
PROC: 10907ZC Drainage of Amniotic Fluid, Therapeutic from Products of Conception, Via Natural or Artificial Opening (ICD-10-PCS; 2018-10-14)
PROC: 3E033VJ Introduction of Other Hormone into Peripheral Vein, Percutaneous Approach (ICD-10-PCS; 2018-10-14)
PROC: 10E0XZZ Delivery of Products of Conception, External Approach (ICD-10-PCS; 2018-10-14)
DX: O69.81X0 Labor and delivery complicated by cord around neck, without compression, not applicable or unspecified (principal); Z37.0 Single live birth; O99.72 Diseases of the skin and subcutaneous tissue complicating childbirth; L57.0 Actinic keratosis; Z3A.39 39 weeks gestation of pregnancy; O90.81 Anemia of the puerperium; O70.1 Second degree perineal laceration during delivery
CPT/HCPCS: 36415; 85025; 86850; 86900; 86901; A9270-GY; J3490